=== PATIENT | female | born 1965 | race African-American/Black ===

== ENCOUNTER 2017-09-01 08:40 | Day surgery (SDC) | payer BC, OTHER ==
[2017-08-22 15:56] VITALS: BMI 26.2
[2017-09-01] MEDS ORDERED: EPINEPHrine 1:1,000 1 MG/1 ML - 30ML VIAL (INJECTION) ONE (11:02)
[2017-09-01] MEDS ORDERED: BUPIVACAINE HCL/PF 2.5 MG/ML - 30 ML VIAL IJ ONE (11:02)
[2017-09-01] MEDS ORDERED: MIDAZOLAM HCL 2 MG/2 ML SINGLE DOSE VIAL ONE (11:42)
[2017-09-01] MEDS ORDERED: DEXAMETHASONE SOD PHOSPHATE 4 MG/1 ML VIAL ONE ×2 (11:42→12:22)
[2017-09-01] MEDS ORDERED: ONDANSETRON 4 MG/2 ML VIAL ONE ×2 (11:42→12:22)
[2017-09-01] MEDS ORDERED: ceFAZolin SODIUM 1 GM VIAL ONE (11:55)
[2017-09-01] MEDS ORDERED: KETOROLAC TROMETHAMINE 30 MG/1 ML VIAL ONE (12:21)
[2017-09-01] MEDS ORDERED: oxyCODONE HCL 5 MG TABLET PO PRN ×2 (12:36)
[2017-09-01] MEDS ORDERED: ONDANSETRON 4 MG/2 ML VIAL IVPUSH PRN (12:36)
[2017-09-01] MEDS ORDERED: LACTATED RINGERS SOLUTION 1,000 ML IV SCH (12:45)
[2017-09-01 13:47] VITALS: TEMP 97.7
[2017-09-01 14:15] VITALS: BP 134/75; PULSE 66
--- NOTE | 2017-09-03 22:44 | OP ---
DATE OF OPERATION: 09/01/2017 SURGEON: Cali Dotson MD CAMP DISHWASHER: JULIANO Connors PREOPERATIVE DIAGNOSIS: 1. Right knee medial and lateral meniscal tears. 2. Right knee cartilage injury. 3. Right knee synovitis. POSTOPERATIVE DIAGNOSIS: 1. Right knee medial and lateral meniscal tears. 2. Right knee cartilage injury. 3. Right knee synovitis. PROCEDURE: 1. Right knee arthroscopy with partial meniscectomy of the medial and lateral meniscus, CPT code 33156. 2. Right knee arthroscopy with chondroplasty and abrasioplasty, CPT code 77018. 3. Right knee arthroscopy with synovectomy, CPT code 45762. FINDINGS: 1. Medial meniscus body and posterior horn tear. 2. Lateral meniscus body tear. 3. Synovitis of patellofemoral, medial and lateral notch area. 4. Anterior grade 1 cartilage change, anterior tibia medial joint line. 5. ACL and PCL intact. 6. Diffuse grade 1-2 cartilage changes of the lateral tibial plateau. 7. Central grade 2-4 cartilage injury of the patella with large cartilage flap. PROCEDURE: Informed consent was obtained. The patient came to the operating room, where the lower extremity was prepped and draped in a sterile fashion. A tourniquet was placed on the upper thigh, but not inflated. Using standard arthroscopic technique, a lateral incision and portal was made to allow for introduction of the camera into the suprapatellar bursa. This was then taken to the medial joint line, where under direct visualization, a medial incision and portal was made. Excessive synovium noted in the medial, lateral and patellofemoral and notch area was removed by an up-biter, shaver and Bovie cautery. This was found to bring in inflammatory tissue into the joint surface, a source of pain and dysfunction. Probing of the medial and lateral meniscus found tears, as described in the findings. These were removed with the up-biter and shaver and taken back to a stable rim. Grade 2 to 3 degenerative changes were treated with a chondroplasty, removing all flaking surfaces with low-setting Bovie along the periphery to prevent further flaking. Grade 4 changes, as noted, were treated with an abrasioplasty, creating a bleeding surface at the bone/cartilage interface. Aggressive debridement with shaver/oscar created bleeding surface. Microfracture also done when indicated in findings All areas of the knee were once again reexamined. The knee was then drained and a single suture was placed in all portals. A sterile dressing was placed and the patient was transferred to the recovery room without complication. CALI DOTSON M.D. [id number]
--- NOTE | 2017-09-04 18:13 | PATH ---
Surgical Pathology Report Patient Name: DEBBIE ANDRADE [facility]. Rec. #: [id number] /Age/Gender: 1965 (Age: 52) / F Account: [id number] Location: [facility] AMBULATORY Taken: 09/01/2017 Received: 09/01/2017 Reported: 09/04/2017 Physicians: Cali Oconnor M.D. Specimen(s) Received RIGHT KNEE SHAVINGS Clinical History Right knee internal derangement Final Diagnosis KNEE SHAVINGS, RIGHT, ARTHROSCOPY, PARTIAL MENISCECTOMY, CHONDROPLASTY, SYNOVECTOMY: FRAGMENTS OF CARTILAGE, DENSE FIBROCONNECTIVE TISSUE, ADIPOSE TISSUE, AND SYNOVIUM. Electronically Signed Roxanna Pickett M.D. Gross Description Received in formalin, labeled "right knee shaving," is a 2.5 x 2.5 x 0.3 cm. aggregate of thorpe-yellow soft tissue fragments. A statement services representative portion is submitted in one cassette. /09/01/2017 [facility]09/01/2017
== END 2017-09-01 14:20 | disposition home or self-care (01) ==
LOC: FASU 08:40
PROVIDERS: ATTEND Orthopaedic Surgery
PROC: 0SBC4ZZ Excision of Right Knee Joint, Percutaneous Endoscopic Approach (ICD-10-PCS; 2017-09-01)
PROC: 0SBC4ZZ Excision of Right Knee Joint, Percutaneous Endoscopic Approach (ICD-10-PCS; principal; 2017-09-01 12:13)
DX: S83.241A Other tear of medial meniscus, current injury, right knee, initial encounter (principal); S83.281A Other tear of lateral meniscus, current injury, right knee, initial encounter; S83.8X1A Sprain of other specified parts of right knee, initial encounter; M65.861 Other synovitis and tenosynovitis, right lower leg; X58.XXXA Exposure to other specified factors, initial encounter; Y93.9 Activity, unspecified; Y92.9 Unspecified place or not applicable
CPT/HCPCS: 84703; 88304-TC; 94760

== ENCOUNTER 2020-02-25 06:58 | Emergency (ER) | payer SELFPAY ==
[2020-02-25 07:21] VITALS: BMI 26.9
[2020-02-25 08:18] LABS: BASO % 0.7 % (0-2.0); EOS % 0.7 % (0-4.5); HEMATOCRIT 40.8 % (32.4-45.2); HEMOGLOBIN 13.4 GM/dL (10.7-15.3); LYMPH % 14.6 % (8-40); MCH 29.8 pg (25.7-33.7); MCHC 32.8 g/dl (32.0-36.0); MEAN CELL VOLUME 90.8 fl (80-96); MEAN PLT VOLUME 7.8 fl (7.5-11.1); MONO % 8.7 % (3.8-10.2); NEUT % 75.3 % (42.8-82.8); PLATELET COUNT 389 K/MM3 (134-434); RBC 4.49 M/mm3 (3.60-5.2); RDW 14.7 % (11.6-15.6); WHITE BLOOD COUNT 9.2 K/mm3 (4.0-10.0)
[2020-02-25 08:26] LABS: INR 0.9 (0.83-1.09); PROTHROMBIN TIME (PATIENT) 10.9 SEC (9.7-13.0)
[2020-02-25 08:36] LABS: POTASSIUM 4.2 mmol/L (3.5-5.1)
[2020-02-25 08:37] LABS: CALCIUM 9.8 mg/dL (8.5-10.1)
[2020-02-25 08:38] LABS: BLOOD UREA NITROGEN 16.8 mg/dL (7-18)
[2020-02-25 08:43] LABS: BILIRUBIN,TOTAL 0.6 mg/dL (0.2-1); TOT PROT 7.8 g/dl (6.4-8.2)
[2020-02-25] MEDS ORDERED: CLINDAMYCIN PHOSPHATE 600 MG/4 ML VIAL ONE (10:03)
[2020-02-25] MEDS ORDERED: CLINDAMYCIN IVPB 300 MG in DEXTROSE 5%-WATER - 48 ML IVPB ONE (10:05)
[2020-02-25 11:08] VITALS: BP 154/84; PULSE 82; TEMP 98.2
== END 2020-02-25 11:38 | disposition home or self-care (01) ==
LOC: JER 06:58
DX: K04.7 Periapical abscess without sinus (principal)
CPT/HCPCS: 36415; 70487-TC; 80053; 84703; 85025; 85610; 99285-25; Q9967